=== PATIENT | female | born 1970 | race Caucasian/White ===

== ENCOUNTER → 2021-03-16 | Outpatient (CLI) | payer BC ==
[2015-08-19 21:30] VITALS: BP 104/59
--- NOTE | 2021-03-16 08:12 | RAD ---
XR SHOULDER_RIGHT 2+ VIEWS 03/16/2021 7:54 AM INDICATION: Right shoulder pain status post fall COMPARISON: None available. TECHNIQUE: 3 views of the right shoulder are provided. FINDINGS/ IMPRESSION: There is no acute fracture or dislocation. Joint spaces are maintained. Bone mineralization is within normal limits. Regional soft tissues are within normal limits. There is no soft tissue gas or osseou s erosion. No radiopaque foreign body. Electronically signed by: Rachel Olivera MD (03/16/2021 8:09 AM) [id number]
== END ==
LOC: RAD 07:47
PROVIDERS: ATTEND Nurse Practitioner Family
DX: M25.511 Pain in right shoulder (principal)
CPT/HCPCS: 73030